=== PATIENT | male | born 1965 | race Caucasian/White ===

== ENCOUNTER 2016-11-11 09:15 | Emergency (ER) | payer OTHER ==
--- NOTE | 2016-11-13 16:28 | ER ---
ADMIT: 11/11/2016 RM/LOC: ER [facility] MR#: [id number] [facility] [address] [place] [id number] [place] [address] Emergency Room Report SEX: M AGE: 51 : 1965 DATE: 11/11/2016 ADDENDUM: CHIEF COMPLAINT: Right hand pain. HISTORY OF PRESENT ILLNESS: This is a 51-year-old, who has had pain in his right and left hand chronically for, sounds like for years, worse over the last year. He is a little nervous because he just recently had 2 siblings who of cancer, one of them being bone cancer, so he was concerned and so came to the ER. An x-ray was done of his right hand, negative for any acute findings. He does not have a primary care physician. I highly advised him that he needs to follow up with primary care, especially since he has insurance that should not be an issue for him to get a full physical done. CLINICAL IMPRESSION: Right hand pain with a cyst. DISPOSITION: Having him ice, use Motrin, Tylenol for pain and follow up with his primary care physician for further workup. AVIS Kerr / Blake Allred MD / ysabel JOB #: [id number] CC: Blake Allred MD, Attending Physician UNKNOWN, Family Physician
== END 2016-11-11 11:00 | disposition home or self-care (01) ==
LOC: ER 09:15
DX: M79.641 Pain in right hand (principal); L72.9 Follicular cyst of the skin and subcutaneous tissue, unspecified